=== PATIENT | female | born 1950 | race Caucasian/White ===

== ENCOUNTER → 2017-11-09 | Outpatient (CLI) | payer OTHER ==
[~2017-11-09] MED LIST: NORCO 5-325 TA1 EACH PO
== END ==
LOC: RAD 09:40
DX: Z12.31 Encounter for screening mammogram for malignant neoplasm of breast (principal)

== ENCOUNTER → 2018-01-20 | Outpatient (CLI) | payer OTHER | LOC: RAD 13:14 | DX: Z01.818 Encounter for other preprocedural examination (principal); I70.0 Atherosclerosis of aorta ==

== ENCOUNTER → 2018-03-21 | Outpatient (CLI) | payer OTHER ==
[~2018-03-21] MED LIST changes: +LISINOPRIL10 MG PO
--- NOTE | ~2018-03-21 | EKG ---
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
== END ==
LOC: CV 09:39
DX: Z01.818 Encounter for other preprocedural examination (principal); E66.01 Morbid (severe) obesity due to excess calories

== ENCOUNTER 2018-03-22 05:26 | Day surgery (SDC) | payer OTHER ==
[~2018-03-22] VITALS: Ht 172.7 cm; Wt 107.0 kg
--- NOTE | ~2018-03-22 | EKG ---
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
--- NOTE | ~2018-03-22 | O ---
[facility] [place] [address] OPERATIVE REPORT Name: BRITTNI ELI Room #: [facility]#: [id number] Admission: 03/22/18 Attend Phys: Fox Bhatti MD, F Discharge: 03/23/18 Date of : 48 Report #: [id number] THIS REPORT FOR: //name// CC: Natanael Bhatti DATE OF SERVICE: 03/22/2018 SURGEON: Fox Bhatti MD REHABILITATION ENGINEER: Rickie Cifuentes DO. POSTOPERATIVE DIAGNOSES: 1. Morbid obesity. 2. Hypertension. 3. Urinary incontinence. POSTOPERATIVE DIAGNOSES: 1. Morbid obesity. 2. Type 3 paraesophageal hernia. 3. Hypertension. 4. Urinary incontinence. PROCEDURES: 1. Laparoscopic sleeve gastrectomy with EGD. 2. Laparoscopic repair of type 3 paraesophageal hernia. ANESTHESIA: General endotracheal anesthesia and local anesthetic. ESTIMATED BLOOD LOSS: 5 mL. SPECIMEN: Lateral stomach. COMPLICATIONS: None appreciated. INDICATIONS FOR PROCEDURE: This is a 67-year-old female patient of Dr. Natanael Suarez, who stands 5 feet 6 inches and weighs 256 pounds with a BMI of 40.8 at her last office visit. Her maximum weight is 260 pounds. She has had difficulty with her weight since she stopped smoking tobacco approximately 20 years ago. She has tried numerous weight loss programs and plans, including specialized diets, exercises and rrai-hqy-ytpabch medications. She has been unsuccessful with all weight loss attempts and that any amount of weight she has lost, she has quickly regained, plus additional weight after stopping the modality. She has several weight-associated comorbid conditions and complaints. She has been cleared from a multidisciplinary standpoint for bariatric surgery. [address] [address] OPERATIVE REPORT Name: BRITTNI ELI Room #: DEP [facility].#: [id number] Admission: 03/22/18 Attend Phys: Fox Bhatti MD, F Discharge: 03/23/18 Date of : 48 Report #: [id number] She presents now for laparoscopic sleeve gastrectomy with EGD. OPERATIVE FINDINGS: On EGD, the patient's esophagus was normal down at the GE junction, Z-line however, there appeared to be a hiatal hernia. This was confirmed on retroflexion of the scope within the stomach. Several diminutive polyps were seen within the stomach, which did not appear pathologic. The duodenum to the third portion was normal without polyps, masses, diverticula, or ulcers. Laparoscopically, the patient had a mildly enlarged liver. Her colon and small bowel in the surrounding area appeared otherwise normal. There was some scar tissue from the omentum to the liver near the pylorus; however, upon taking this down, there was no associated pathology. A moderate sized paraesophageal hernia was present. This was seen, upon entering the abdominal cavity, and upon further dissection, the hernia sac was present, whereby the GE junction and upper third of the stomach were located within the hernia. After appropriately dissecting this free, the fundus was well below the level of the diaphragm. The hernia itself was amenable to primary repair with no need for mesh. The gastric sleeve staple line was located 4 cm lateral/proximal to the pylorus, 3 cm lateral to the incisura of the stomach, and 1 cm lateral to the GE junction. There was no evidence for staple line leak, whereby after applying 14 mL of Tisseel to the staple line, air was immediately insufflated into the gastric sleeve and no bubbles were seen forming within the Tisseel, indicative of a negative leak test. Endoluminally, the sleeve was well contoured and smooth with no evidence for hemorrhage. Near the GE junction, the scope advanced and withdrew easily past the repair. The excised stomach held 800 mL of fluid on the backtable. DESCRIPTION OF PROCEDURE IN DETAIL: After the risks, benefits, and expectations of the operation were discussed in detail with the patient, informed consent was obtained. The patient was identified in the preoperative holding area. She was given IV antibiotics as documented in the chart in line with SCIP metrics as well as receiving Lovenox and a scopolamine patch preoperatively. The patient was then taken to the operating room and she was placed in the supine position. SCDs were placed on the patient's bilateral lower extremities and pneumatic compression was initiated. The patient was then given IV sedation and she was intubated without incident. An orogastric tube and bite block were placed by anesthesia under my direction. The patient was placed in the low lying dorsal lithotomy position in Yellofin stirrups with her arms tucked. She had been placed on a beanbag, which was informed to her. The patient and beanbag were then secured to the table with tape. EGD was performed first. The gastroscope was inserted into the patient's [facility] [address] [address] OPERATIVE REPORT Name: BRITTNI ELI [id number] Admission: 03/22/18 Attend Phys: Fox Bhatti MD, F Discharge: 03/23/18 Date of : 48 Report #: [id number] oropharynx and passed down the esophagus into the stomach and beyond the pylorus to her third portion of the duodenum. The scope was then slowly withdrawn. Scope was retroflexed. The findings were as noted above. The scope was then straightened and slightly withdrawn. The orogastric tube was then placed to suction. The patient's abdomen was then prepped and draped in the standard sterile fashion. Local anesthetic was infiltrated into the skin and subcutaneous tissue in the left supraumbilical area where a small transverse incision was made. A 5 mm Visiport was placed intraperitoneally with a 0-degree angled laparoscope. Pneumoperitoneum was then achieved with insufflation of carbon dioxide to 15 mmHg. A 30-degree angled laparoscope was then inserted. A right mid abdominal 15 mm port was then placed under direct visualization after local anesthetic was infiltrated into the skin and subcutaneous tissue and an appropriately sized incision was made. Additional 5 mm ports were placed in the right mid and right lateral abdomen using the same technique. The patient was then placed in the reverse Trendelenburg position. Local anesthetic was infiltrated into the skin and subcutaneous tissue in the subxiphoid area where a small transverse skin mirza was made. A 5 mm obturator was then advanced transfascially to create a passageway for the Jassi liver retractor. The retractor was positioned appropriately and held in place with the Iron Shank Sorter apparatus. Operative findings are as noted above. The gastrosplenic ligament was then opened to enter the lesser sac using the ultrasonic dissector and while dividing the short gastric vessels with good hemostasis. The ligament was opened up to the gustavo of the diaphragm. The large hiatal hernia was seen. The pars flaccida was then entered and the stomach was dissected out of the mediastinum. A moderate sized hernia sac was present and this was dissected free. Dissection was continued such that the stomach was well within the abdominal cavity with a 1-2 cm of intraabdominal esophagus. Primary repair of the moderate sized hiatal hernia was undertaken next. The left mid abdominal 5 mm port was upsized to a 12 mm port to accommodate for the EndoStitch device. This was done so under direct visualization. Using the EndoStitch, 0 Ethibond sutures were placed x 2 to repair the defect. After repair of the defect, the opening adjacent to the esophagus allowed for passage of an instrument without difficulty. The gastrocolic ligament was then divided to an area that was measured to be 4 cm proximal/lateral to the pylorus. Adhesions from the omentum to the liver were taken down near the pylorus to allow for improved visualization. The gastroscope was adjusted by Anesthesia under my direction, such that it would lie against the lesser curvature of the stomach to serve as a 34-Serbian bougie. The orogastric tube was withdrawn by Anesthesia under my direction after taking the tube off suction. [facility] [address] [place] [address] OPERATIVE REPORT Name: BRITTNI ELI Room #: DEP [facility] M.RJo#: [id number] Admission: 03/22/18 Attend Phys: Fox Bhatti MD, F Discharge: 03/23/18 Date of : 48 Report #: [id number] The gastric sleeve was then created in a distal to proximal fashion using the 60 mm endoscopic powered JOANNA stapler. Each staple load was buttressed with Lesa-Strips. The initial two firings were with black load; the remaining firings were with green loads. The excised stomach was then removed through the 15 mm port site. A 0 PDS suture was placed with the Bar-Gwen laparoscopic fascial closure device and the suture was tagged. The port was then replaced. The leak test was performed next. 14 mL of Tisseel was applied to the entire length of the staple line as well as to the repaired hiatus using the [employer] aerosolizer with good coverage of all areas. Immediately after doing so, the leak test was performed. The EGD scope was used to gently insufflate the gastric sleeve while slowly withdrawing the scope. No air bubbles were seen forming within the Tisseel, indicative of a negative leak test. The sleeve was then decompressed. The scope traversed easily beyond the repair. Scope was then fully withdrawn. The abdominal cavity was then briefly surveyed. The Jassi liver retractor was removed under direct visualization. A 0 PDS suture was placed in the 12 mm port site fascial opening with the Bar-Gwen laparoscopic fascial closure device. Each of the fascial sutures were then tied under direct visualization to ensure no incorporation of intra-abdominal content. The abdominal cavity was then desufflated and the ports were removed. Interrupted subcuticular 4-0 Monocryl sutures and Dermabond were used to close the skin incisions. The patient tolerated the procedure well. She was awakened, extubated, and taken to recovery room in stable condition with no apparent intraoperative complications. By: [id number] Fox Bhatti MD, FACS /nt
[2018-03-22 09:54] LABS: HEMATOCRIT 43.4 % (37.0-47.0)
[2018-03-22 12:01] VITALS: BP 162/77
[2018-03-22 16:43] VITALS: BP 156/71
[2018-03-22 20:14] VITALS: BP 155/60
[2018-03-23 04:01] VITALS: BP 154/62
[2018-03-23 06:24] LABS: ABSOLUTE NEUTROPHILS 11.6 thou/uL (1.4-8.2); BASOPHILS 0.6 % (0.0-2.0); HEMATOCRIT 38.4 % (37.0-47.0); LYMPHOCYTES 10.1 % (24.0-44.0); MCH 28.7 pg (26.0-34.0); MCHC 33.7 g/dL (28.0-37.0); MCV 85.2 fL (80.0-100.0); MONOCYTES 7.7 % (1.0-8.0); PLATELET COUNT 357 thou/uL (150-400); POLYS 81.6 % (36.0-66.0); RBC 4.51 mil/uL (4.20-5.00); RDW 14.5 % (10.5-14.5); WBC 14.2 thou/uL (4.0-11.0)
[2018-03-23 06:31] LABS: CALCIUM 9.1 mg/dL (8.5-10.1); CREATININE 1.1 mg/dL (0.6-1.0); POTASSIUM 4.5 mmol/L (3.5-5.1)
[2018-03-23 08:34] VITALS: BP 115/67
[2018-03-23 09:40] VITALS: BP 115/67
== END 2018-03-23 10:45 | disposition home or self-care (01) ==
LOC: OR 05:26 → TBA 05:26 → OR 11:33 → 4E 15:30 → ENTRNSPT 03-23 10:33 → OR 03-23 10:45
PROVIDERS: Surgery
DX: E66.01 Morbid (severe) obesity due to excess calories (principal); I10 Essential (primary) hypertension; R32 Unspecified urinary incontinence; Z68.41 Body mass index [BMI] 40.0-44.9, adult; Z87.891 Personal history of nicotine dependence; Z90.49 Acquired absence of other specified parts of digestive tract; Z98.890 Other specified postprocedural states; Z79.899 Other long term (current) drug therapy
CPT/HCPCS: 10783; 50010; 50101; 50222; 50249; 50386; 50555; 50558; 50739; 50740; 50962; 51436; 51437; 52182; 52265; 53307; 53311; 54022; 54118; 55245; 55326; 56462; 56525; 56526; 56531; 57092; 62110; 62900; 70005